=== PATIENT | female | born 1990 | race Two or more races ===

== ENCOUNTER 2025-03-30 08:00 | Day surgery (SDC) | payer OTHER ==
[2025-03-23 13:31] VITALS: BP 112/70
[2025-03-23 13:47] LABS: INR 1.05
[~2025-03-30] VITALS: Ht 154.9 cm; Wt 65.3 kg
[2025-03-30] MEDS ORDERED: POVIDONE-IODINE 118 ML BOTT TOP ONE (12:43)
[2025-03-30] MEDS ORDERED: KETOROLAC TROMETHAMINE 30 MG VIAL IV ONE (14:00)
[2025-03-30] MEDS ORDERED: KETOROLAC TROMETHAMINE 30 MG VIAL ONE (17:20)
== END 2025-03-30 18:00 | disposition home or self-care (01) ==
LOC: CIR.AMB 08:00
PROVIDERS: ATTEND Obstetrics & Gynecology
DX: D25.0 Submucous leiomyoma of uterus (principal); N93.8 Other specified abnormal uterine and vaginal bleeding; N84.0 Polyp of corpus uteri